=== PATIENT | female | born 1995 | race Two or more races ===

== ENCOUNTER 2020-05-03 09:10 | Outpatient (REF) | payer MEDICAID, SELFPAY ==
[2020-05-03 09:43] LABS: COVID-19 Test Negative (Negative); IDNOW Serial# 55D5AD1C
== END 2020-05-03 09:11 | disposition home or self-care (01) ==
LOC: HO.LAB 09:10
PROVIDERS: Visit Provider Internal Medicine
DX: Z20.828 Contact with and (suspected) exposure to other viral communicable diseases (principal)
CPT/HCPCS: 87635; C9803

== ENCOUNTER 2020-06-13 16:13 | Outpatient (REF) | payer SELFPAY ==
[2020-06-13 16:52] LABS: Cholesterol 260 mg/dL
[2020-06-13 17:16] LABS: SARS COV2 IgG Negative (Negative)
== END 2020-06-13 16:14 | disposition home or self-care (01) ==
LOC: HO.LNC 16:13
PROVIDERS: Visit Provider Pathology Anatomic Pathology & Clinical Pathology
DX: Z13.89 Encounter for screening for other disorder (principal)
CPT/HCPCS: 82465; 86769

== ENCOUNTER 2021-07-04 11:17 | Outpatient (REF) | payer OTHER, MEDICAID, SELFPAY ==
--- NOTE | ~2021-07-04 | XR_ITS ---
EXAMINATION: XR ANKLE, RIGHT CLINICAL INFORMATION: Right ankle pain. COMPARISON: None TECHNIQUE: AP, lateral, and mortise views of the right ankle. FINDINGS: There is no acute fracture, dislocation or subluxation seen. There is mild right lateral malleolar soft tissue swelling. The ankle mortise and subtalar joints are normal. The soft tissues are normal. XR/XR ankle RT min 3V IMPRESSION: Mild lateral malleolar soft tissue swelling. No visible acute fracture, dislocation or subluxation.
== END 2021-07-04 11:18 | disposition home or self-care (01) ==
LOC: HO.HOSX 11:17
PROVIDERS: Visit Provider Orthopaedic Surgery
DX: M25.373 Other instability, unspecified ankle (principal); M76.71 Peroneal tendinitis, right leg
CPT/HCPCS: 73610; 99202